=== PATIENT | female | born 1960 | race Two or more races ===

== ENCOUNTER 2020-10-02 08:33 | Outpatient (CLI) | payer OTHER ==
[~2020-10-02 08:33] MED LIST: LOTREL 10-20 MG1 CAP; LOZOL2.5 MG; PREDNISOLONE5 MG; TUSNEL C SYRUP473 ML; ZITHROMAX500 MG
== END 2020-10-02 08:42 | disposition home or self-care (01) ==
LOC: MRI 08:33
PROVIDERS: ATTEND Internal Medicine Gastroenterology
DX: K86.89 Other specified diseases of pancreas (principal); R10.84 Generalized abdominal pain; R93.5 Abnormal findings on diagnostic imaging of other abdominal regions, including retroperitoneum
CPT/HCPCS: 74181

== ENCOUNTER 2024-11-16 09:45 | Outpatient (CLI) | payer OTHER | END 2024-11-16 10:02 | disposition home or self-care (01) | LOC: RAD 09:45 | PROVIDERS: ATTEND Orthopaedic Surgery | DX: M25.561 Pain in right knee (principal); M25.562 Pain in left knee | CPT/HCPCS: 73721 ==